=== PATIENT | male | born 1990 | race Caucasian/White ===

== ENCOUNTER 2021-06-17 19:32 | Emergency (ER) | payer BC ==
[2021-06-17 20:49] LABS: HEMOGLOBIN 17.6 gm/dl (14.0-17.5); RED BLOOD COUNT 6.14 M/UL (4.20-5.50); WHITE BLOOD COUNT 8.1 K/UL (4.5-11.0)
[2021-06-17 21:14] LABS: BUN/CREATININE RATIO 17 (0-10)
[2021-06-18] MEDS ORDERED: PROAIR HFA8.5 GM INH (02:49)
[2021-06-18] MEDS ORDERED: ZOFRAN ODT 4 MG4 MG GT (03:04)
== END 2021-06-18 02:59 | disposition home or self-care (01) ==
LOC: ER1 19:32
PROVIDERS: Family Medicine
DX: E86.0 Dehydration (principal); R05.9 Cough, unspecified; F17.210 Nicotine dependence, cigarettes, uncomplicated
CPT/HCPCS: 71045; 80053; 81001; 82550; 82553; 83690; 84484; 85025; 93005; 94664; 99284